=== PATIENT | female | born 1965 | race Caucasian/White ===

== ENCOUNTER 2016-05-13 17:35 | Emergency (ER) | payer OTHER ==
[~2016-05-13] VITALS: Ht 167.6 cm; Wt 72.6 kg
[~2016-05-13 17:35] MED LIST: KEFLEX500 MG PO; MECLIZINE HCL25 MG PO
[2016-05-13 17:41] VITALS: BP 137/88
[2016-05-13] MEDS ORDERED: MOBIC15 M1 PO (17:55)
--- NOTE | 2016-05-13 17:55 | ED HAND/WRIST INJURY COMPLAINT ---
History of Present Illness General Chief Complaint: Upper Extremity Problem Stated Complaint: PAIN TO RIGHT HAND Source: patient Exam Limitations: no limitations Vital Signs & Intake/Output Vital Signs & Intake/Output Vital Signs Date Time Temp Pulse Resp B/P Pulse O2 O2 Flow FiO2 Ox Delivery Rate 05/13 1807 Room Air Room Air 05/13 1741 98.2 79 16 137/88 98 Room Air Room Air Allergies Coded Allergies: NO KNOWN ALLERGIES (05/13/16) Reconcile Medications Meloxicam (Mobic) 15 MG TABLET 1 TAB PO DAILY PRN pain/inflammation Triage Note: PT TO TRIAGE WITH PAIN TO RIGHT WRIST. PT HAS SMALL LUMP PRUTRUSING FROM JOINT. STATES IT HAS BEEN PRESENT FOR 1 MONTH. NO REDNES OPR SWELLING Triage Nurses Notes Reviewed? yes Occurred: month Duration: 1 month Timing: no prior history Injury Environment: home Severity: mild Severity Numbers: 3 Pain/Injury Location: Left: Wrist. Context: no injury Method of Injury: unknown Modifying Factors: Improves With: immobilization. Worsens With: movement. HPI: Patient is a 50-year-old female presenting to the emergency department with her with chief complaint of bump on the left wrist that started about one month ago. She reports that she woke up this morning and is painful. Denies any change in size. Denies any injury. The pain occasionally radiates up the left second digit. No numbness or tingling. Denies any nausea vomiting fevers or chills chest pain or shortness of breath. Denies any rashes. Denies taking anything at home to help with symptoms. Symptoms currently mild. (LOS BEAVERS) Past History Travel History Traveled to [place] past 21 day No Medical History Any Pertinent Medical History? 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 No (LOS BEAVERS) Review of Systems Review of Systems Constitutional: Reports: no symptoms. Comments Review of systems: See HPI, All other systems negative. Constitutional, no chills no fever, no malaise no weight loss HEENT: No visual changes no sore throat no congestion, no ear pain Cardiovascular: No chest pain , no palpitation Skin, no jaundice no rashes, no change in skin Respiratory: No dyspnea no cough GI: No nausea no vomiting, no diarrhea : No dysuria No hematuria, no frequency, no discharge Muscle skeletal: No joint pain, no joint swelling, no back pain, no neck pain, Neurologic: No numbness no confusion, no headache Psych: No stress no anxiety Immunology: No lymphadenopathy, no splenectomy (LOS BEAVERS) Physical Exam Physical Exam General Appearance: well developed/nourished, no apparent distress, alert, awake , comfortable Hand Left: tender, left hand Hand Right: normal inspection, normal range of motion Comments: Well-developed well-nourished person in no acute distress HEENT: Pupils equally round and reactive to light and accommodation. Nose is atraumatic. Neck: Normal inspection Cardiovascular: normal JVP Respiratory: Chest nontender. No respiratory distress.breath sounds clear to auscultation bilaterally Extremity: No edema, mild prominence over the left second mcp, well circumscribed, slightly mobile approximately 1 cm in diameter, at the proximal aspect of the left second metacarpal. Full range of motion of left wrist, left hand, digits on the left hand. Capillary refills intact in all directions bilaterally. Radial pulses are 2+ bilaterally. No erythema. No warmth. Neuro: Alert oriented x3, motor sensory normal Skin: No appreciable rash on exposed skin, skin is warm and dry. Psych: Mood and affect is normal, memory and judgment is normal. (LOS BEAVERS) Progress Differential Diagnosis: fracture, gout, sprain, tenosynovitis, ganglionic cyst Plan of Care: Orders Procedure Date/time Status Durable Medical Equipment 05/13 1754 Active Comments: Declines pain medication on arrival. Likely ganglionic cyst. No awake overnight counselor the past month. Patient follow-up with orthopedic. Given wrist splint, NSAIDs. (LOS BEAVERS) Departure Departure Time of Disposition: 1753 Disposition: HOME OR SELF CARE Condition: Stable Clinical Impression Primary Impression: Ganglion cyst Referrals: ANGEL OCASIO,JUAN CARTWRIGHT (PCP/Family) Additional Instructions: follow up with orthopedic call to make appt. take mobic as prescribed to help with inflammation. wear splint for support. return for worsening symptoms or concerns. Departure Forms: Customer Survey General Discharge Information Prescriptions: Current Visit Scripts Meloxicam (Mobic) 1 TAB PO DAILY PRN pain/inflammation #30 TAB (LOS BEAVERS) PA/COAL SHOOTER Co-Sign Statement Statement: ED Attending supervision documentation- [] I saw and evaluated the patient. I have also reviewed all the pertinent lab results and diagnostic results. I agree with the findings and the plan of care as documented in the PA's/COAL SHOOTER's documentation. [X] I have reviewed the ED Record and agree with the PA's/COAL SHOOTER's documentation. [] Additions or exceptions (if any) to the PAs/COAL SHOOTER's note and plan are summarized below: [] (CARIN ONEILL DO) Procedures Splinting Location: left wrist Manual Alignment Performed: No Pre-Made Type: velcro Splint: wrist Splint Applied By: splint applied by other (nursing) Pre-Proc Neuro Vasc Exam: normal Post-Proc Neuro Vasc Exam: normal Progress: procedure well (LOS BEAVERS)
== END 2016-05-13 18:09 ==
LOC: ERH 17:35
DX: M67.432 Ganglion, left wrist (principal)